=== PATIENT | male | born 1990 | race Hispanic/Latino ===

== ENCOUNTER 2016-10-28 10:21 | Emergency (ER) | payer OTHER ==
[~2016-10-28] VITALS: Ht 165.1 cm; Wt 76.4 kg
[2016-10-28 10:25] VITALS: BP 152/92; PULSE 98; RESP 20; O2SAT 96
--- NOTE | 2016-10-28 10:30 | ED.REPORT ---
HPI-Extremity Problem Lower Date of Service October 28, 2016 ED Provider: Darian Reid MD The patient is a 25 year old male who presents to the emergency department complaining of right ankle pain and swelling that began a few days ago. His pain is exacerbated with weight bearing. He denies numbness or weakness. The patient denies recent injury but does not mention a fall 1 year ago. He has not had any previous surgeries on his right ankle. He denies history of blood clots. Nursing Notes Stated Complaint: RT LEG SWOLLEN/L AND I Chief Complaint: Extremity Trauma Nursing Notes Reviewed: Yes Allergies: Coded Allergies: No Known Allergies (Verified Allergy, Unknown, 10/28/16) No Active Prescriptions or Reported Meds General Time Seen by MD: 10:27 Chief Complaint Ankle injury right Hx Obtained From: Patient, Spouse Arrived By: Walk-in Onset Occurred: 2 days ago Symptom Duration: Since onset Caused by: Mechanism unknown Location: : Ankle right Quality: Painful Severity: Current: Mild Severity: Maximum: Moderate Recent Healthcare: No recent doctor visit, No recent hospitalization Similar Sx Previous: Yes Past Medical History Past Medical History Asthma Past Surgical History none reported Family History noncontributory Smoking History Never Smoker Social History Alcohol Use: Denies alcohol use Drug Use: Denies drug use Other Social History: Good social support, Local resident Ambulatory Status Independent Review of Systems Musculoskeletal: Reports: Joint pain, Joint swelling Complete sys rev & neg: except as marked. Physical Exam Initial Vital Signs Vital Signs (First) Date Time Temp Pulse Resp B/P Pulse Ox O2 Delivery O2 Flow Rate FiO2 10/28/16 10:25 36.5 98 20 152/92 96 Room Air Initial VS: Reviewed Head / Eyes: Atraumatic, Normocephalic, PERRL ENT: Mucous membranes moist, Conjunctiva normal, No scleral icterus Neck: Supple, Non-tender, Full range of motion Respiratory: Breath sounds normal, Clear to auscultation, No respiratory distress Cardiovascular: Regular rate & rhythm, Heart sounds normal, Intact distal pulses Abdomen / GI: Soft, Non-tender, No guarding, No rebound, No distention Lymphatic: No lymphadenopathy Upper Extremities: Vascular intact, Neuro intact, No swelling, No tenderness Skin: Warm, Dry, No cyanosis Neurologic: Alert, Oriented, Nonfocal Psychiatric: Mood/affect normal, Behavior normal, Normal thought content Lower Extremity / Pelvis / MS: No deformity, Neurologic intact, Vascular intact , No ligamentous injury Ankle / Foot: No deformity, Neurologic intact, Vascular intact He localizes the pain to the medial aspect of his right ankle without bony deformity. No calf swelling, tenderness, redness or warmth. Good DP and PT pulses. Sensation intact. There is no obvious swelling seen on my examination. He has mild tenderness just inferior to medial malleolus and medial aspect of his foot. No focal tenderness or deformities Interpretation & Diagnostics X-Ray Interpretation Xray Interpretation: IMPRESSION: No fracture Dictated by: Madi Menon M.D. on 10/28/2016 at 11:11 X-Ray Ordered: Ankle right Interpretation / Wet Read by: Interpret - Radiologist Re-Eval/Medical Decision Med Decision/Clinical Course The patient is a 25 year old male who presents to the emergency department complaining of right ankle pain and swelling that began a few days ago. His pain is exacerbated with weight bearing. He denies numbness or weakness. The patient denies recent injury but does not mention a fall 1 year ago. He has not had any previous surgeries on his right ankle. He denies history of blood clots. Here in the emergency department the patient is afebrile with stable vital signs and examination as above. Notably there is no evidence of redness, swelling, warmth, septic arthritis, cellulitis or DVT. He has had no prolonged immobilization, history of coagulopathy, recent surgery or other risk factors for development of DVT. Physical exam is not consistent with DVT. He is neurovascularly intact in the affected extremity. Plain films were obtained as above and demonstrated no acute fracture or dislocation. The cause of his ongoing pain is unclear however he has essentially normal examination except for mild reported diffuse tenderness. I suspect that his pain is related to muscle sprain. Patient was treated with Toradol, ice pack and Jose Carlos bandage. He will follow up with his primary care physician. Prior to discharge follow-up and return precautions were reviewed in detail with the patient who verbalized understanding and agreement with the plan. The patient was discharged in stable condition. Source of Hx: Old records Re-Evaluation/Progress : Time of Eval: 11:19 Re-Evaluation/Progress Note: Rechecked the patient. Discussed results, diagnosis, and plan for discharge. All questions were addressed. Counseled Regarding: Diagnosis, Need for follow-up, When/why to return to ED Discharge & Departure Impression: Primary Impression: Right ankle pain Chronicity: acute Qualified Code: M25.571 - Pain in right ankle and joints of right foot Disposition: Home Discharge Condition All VS Reviewed: Yes Condition: Stable Additional Instructions: Thank you for seeking care at the emergency room. Our primary goal today in the ED was to evaluate you for any life-threatening conditions. Your evaluation was reassuring. You can take ibuprofen 600 mg three times daily as needed for your discomfort and swelling. Make sure to take this medication for food and water. Stop taking the ibuprofen if you develop stomach upset. You can apply ice and elevate a few times a day. You should follow-up with your primary doctor in the next week if your symptoms continue. You should return to the ED immediately if you develop you develop increased pain or swelling, numbness, weakness, skin discoloration, or any other concerning signs or symptoms. Thank you for letting us partake in your care today. Referrals: [facility], [facility] Scribe Attestation Portions of this note were transcribed by Mari Nunes. I, Dr. Reid personally performed the history, physical exam and medical decision-making; I reviewed and confirmed the accuracy of the information in the transcribed note. Signed by: Francisco Amor, 10/28/2016 at 1130. Darian Reid MD October 28, 2016 10:30 Mari Nunes October 28, 2016 10:33
--- NOTE | 2016-10-28 11:13 | DRSVH ---
PROCEDURE: X-RAY LEFT FOOT COMPLETE, MINIMUM THREE VIEWS ([id number]) INDICATIONS: pain/remote trauma TECHNIQUE: 3 views of the foot were acquired. COMPARISON: None. FINDINGS: Bones: No fractures or dislocations. No suspicious bony lesions. Soft tissues: No tibiotalar joint effusion. Achilles tendon appears normal. IMPRESSION: No fracture Dictated by: Madi Menon M.D. on 10/28/2016 at 11:11 Approved by: Madi Menon M.D. on 10/28/2016 at 11:12
[2016-10-28 11:53] VITALS: BP 152/92; PULSE 98; RESP 20; O2SAT 96
== END 2016-10-28 11:54 | disposition home or self-care (01) ==
LOC: SED 10:21
DX: M25.571 Pain in right ankle and joints of right foot (principal); J45.909 Unspecified asthma, uncomplicated; W19.XXXA Unspecified fall, initial encounter; Y93.9 Activity, unspecified; Y92.9 Unspecified place or not applicable; Y99.0 Civilian activity done for income or pay